=== PATIENT | female | born 2000 | race Two or more races ===

== ENCOUNTER 2022-03-12 07:20 | Emergency (ER) | payer MEDICAID ==
[2022-03-12] MEDS ORDERED: ONDANSETRON 4 MG/2 ML VIAL IVP STA (07:53)
[2022-03-12] MEDS ORDERED: KETOROLAC 30 MG/ML VIAL IVP STA (07:53)
[2022-03-12] MEDS ORDERED: SODIUM CHLORIDE 0.9% 1,000 ML IV STA (07:53)
--- NOTE | 2022-03-12 08:05 | ED Physician Documentation ---
History of Present Illness - Stated complaint Stated Complaint: FEVER,NAUSEA,VOMITING - Chief complaint Chief Complaint: Fever - History obtained from History obtained from: Patient - Additonal information Additional information: Patient is a 21-year-old female with no significant past medical history presenting for evaluation of 4 days of fever, body aches, chills, sore throat, cough with clear phlegm. Patient has been using Tylenol and Motrin without significant improvement in her fever. She took 2 pills of each approximately 1 hour prior to arrival.She had 1 episode of emesis this morning (Nonbloody, nonbilious) And reports continued nausea. She denies abdominal pain, vaginal bleeding, dysuria.She reports sick contacts with family members.She took a COVID test last night which was negative. Review of Systems Constitutional: reports: Fever, Chills, Myalgias Throat: reports: Sore throat Cardiac: denies: Chest pain / pressure Respiratory: reports: Cough. denies: Dyspnea GI: reports: Nausea, Vomiting. denies: Abdominal Pain : denies: Dysuria Skin: denies: Rash Musculoskeletal: denies: Back pain Neurologic: denies: Headache PD PAST MEDICAL HISTORY - Past Medical History Past Medical History: No Cardiovascular: None Respiratory: None Neuro: None Endocrine/Autoimmune: None GI: None HOTEL AND DINING ROOM CASHIER: None : None HEENT: None Psych: None Musculoskeletal: None Derm: None - Past Surgical History Past Surgical History: No - Present Medications Home Medications: Ambulatory Orders Medication Instructions Recorded Confirmed Ondansetron Odt [Zofran] 4 mg TL Q6H PRN #10 tablet 03/12/22 - Allergies Allergies/Adverse Reactions: Allergies Allergy/AdvReac Type Severity Reaction Status Date / Time No Known Drug Allergies Allergy Verified 03/12/22 07:27 - Social History Does the pt smoke?: No Smoking Status: Never smoker Does the pt drink ETOH?: No Does the pt have substance abuse?: No - Immunizations Immunizations are current?: Yes PD ED PE NORMAL - General General: Alert and oriented X 3, No acute distress, Well developed/nourished - HEENT HEENT: Atraumatic, Moist mucous membranes, Pharynx benign (No tonsillar exudate, swelling, signs of peritonsillar abscess. Normal voice) - Neck Neck: Supple, no meningeal sign - Cardiac Cardiac: No murmur, Other (Tachycardic, regular rhythm) - Respiratory Respiratory: No respiratory distress, Clear bilaterally - Abdomen Abdomen: Soft, Non tender, Non distended - Derm Derm: Warm and dry - Extremities Extremities: No edema - Neuro Neuro: Normal speech Results - Vitals Vitals: Vital Signs - 24 hr 03/12/22 03/12/22 03/12/22 07:28 07:42 09:35 Temperature 38.9 C H 37.2 C Heart Rate 137 H 121 H 106 H Respiratory 20 18 19 Rate Blood Pressure 130/84 H 136/69 H 117/85 H O2 Saturation 99 99 98 Oxygen O2 Source Room air - Labs Labs: Laboratory Tests 03/12/22 03/12/22 03/12/22 08:00 08:01 08:01 WBC 8.8 RBC 4.54 Hgb 12.6 Hct 38.4 MCV 84.6 MCH 27.8 MCHC 32.8 RDW 12.9 Plt Count 183 MPV 9.8 Neut # (Auto) 7.5 H Lymph # (Auto) 0.6 L [place] # (Auto) 0.7 Eos # (Auto) 0.0 Baso # (Auto) 0.0 Absolute Nucleated RBC 0.00 Nucleated RBC % 0.0 Sodium 135 Potassium 3.4 L Chloride 102 Carbon Dioxide 23 Anion Gap 10.0 BUN 7 Creatinine 0.8 Estimated GFR (MDRD) 92 Glucose 117 H Calcium 8.8 Total Bilirubin 0.7 AST 28 ALT 36 Alkaline Phosphatase 64 Total Protein 8.0 Albumin 4.4 Globulin 3.6 Albumin/Globulin Ratio 1.2 Lipase 28 Urine Color Urine Clarity Urine pH Ur Specific [place] Urine Protein Urine Glucose (UA) Urine Ketones Urine Occult Blood Urine Nitrite Urine Bilirubin Urine Urobilinogen Ur Leukocyte Esterase Urine RBC Urine WBC Ur Squamous Epith Cells Urine Bacteria Ur Microscopic Review Urine Culture Comments Urine HCG, Qual Nasal Adenovirus (PCR) NOT DETECTED Nasal B. parapertussis DNA (PCR) NOT DETECTED Nasal Coronavir 229E PCR NOT DETECTED Nasal Coronavir HKU1 PCR NOT DETECTED Nasal Coronavir NL63 PCR NOT DETECTED Nasal Coronavir OC43 PCR NOT DETECTED Nasal Enterovir/Rhinovir PCR NOT DETECTED Nasal Influenza A H3 PCR DETECTED A Nasal Influenza B PCR NOT DETECTED Nasal Parainfluen 1 PCR NOT DETECTED Nasal Parainfluen 2 PCR NOT DETECTED Nasal Parainfluen 3 PCR NOT DETECTED Nasal Parainfluen 4 PCR NOT DETECTED Nasal RSV (PCR) NOT DETECTED Nasal B.pertussis DNA PCR NOT DETECTED Nasal C.pneumoniae (PCR) NOT DETECTED Jorge Alberto Human Metapneumo PCR NOT DETECTED Nasal M.pneumoniae (PCR) NOT DETECTED Nasal SARS-CoV-2 (PCR) NOT DETECTED Group A Strep Rapid 03/12/22 03/12/22 08:10 09:00 WBC RBC Hgb Hct MCV MCH MCHC RDW Plt Count MPV Neut # (Auto) Lymph # (Auto) [place] # (Auto) Eos # (Auto) Baso # (Auto) Absolute Nucleated RBC Nucleated RBC % Sodium Potassium Chloride Carbon Dioxide Anion Gap BUN Creatinine Estimated GFR (MDRD) Glucose Calcium Total Bilirubin AST ALT Alkaline Phosphatase Total Protein Albumin Globulin Albumin/Globulin Ratio Lipase Urine Color YELLOW Urine Clarity SL. CLOUDY Urine pH 6.0 Ur Specific [place] <=1.005 Urine Protein NEGATIVE Urine Glucose (UA) NEGATIVE Urine Ketones 15 H Urine Occult Blood LARGE H Urine Nitrite NEGATIVE Urine Bilirubin NEGATIVE Urine Urobilinogen 0.2 (NORMAL) Ur Leukocyte Esterase TRACE H Urine RBC 6-10 H Urine WBC 6-10 H Ur Squamous Epith Cells MOD Squamous H Urine Bacteria Few Ur Microscopic Review INDICATED Urine Culture Comments NOT INDICATED Urine HCG, Qual NEGATIVE Nasal Adenovirus (PCR) Nasal B. parapertussis DNA (PCR) Nasal Coronavir 229E PCR Nasal Coronavir HKU1 PCR Nasal Coronavir NL63 PCR Nasal Coronavir OC43 PCR Nasal Enterovir/Rhinovir PCR Nasal Influenza A H3 PCR Nasal Influenza B PCR Nasal Parainfluen 1 PCR Nasal Parainfluen 2 PCR Nasal Parainfluen 3 PCR Nasal Parainfluen 4 PCR Nasal RSV (PCR) Nasal B.pertussis DNA PCR Nasal C.pneumoniae (PCR) Jorge Alberto Human Metapneumo PCR Nasal M.pneumoniae (PCR) Nasal SARS-CoV-2 (PCR) Group A Strep Rapid Negative PD MEDICAL DECISION MAKING - ED course Complexity details: reviewed results, re-evaluated patient ED course: Patient presenting with fever, myalgias, sore throat. Overall she is fairly well-appearing with normal lung sounds and no signs of meningitis.Her abdominal exam is benign. She was tachycardic Which did improve with fever control and IV fluids. Her labs are reassuring. Her chest x-ray is clear. Her respiratory panel is positive for influenza. She is out of the window for Tamiflu.Patient counseled on continuing with supportive care as well as concerning symptoms to return for. Departure - Departure Disposition: 01 Home, Self Care Clinical Impression: Influenza A Condition: Stable Instructions: ED Fever Control Prescriptions: Ondansetron Odt [Zofran] 4 mg TL Q6H PRN #10 tablet PRN Reason: Nausea / Vomiting Comments: You have tested positive for influenza A.I have sent a prescription for nausea medicine to [facility] in [place]. Please continue to alternate with acetaminophen and ibuprofen For your fevers. Please continue to stay hydrated with plenty of fluids and get plenty of rest. If you have any worsening symptoms such as trouble breathing then please consider return to the emergency department. Forms: Activity restrictions Discharge Date/Time: 03/12/22 09:46
[2022-03-12 08:06] LABS: BASOPHILS % (AUTO) 0.1 %; EOSINOPHILS % (AUTO) 0.1 %; HCT - HEMATOCRIT 38.4 % (37.0-47.0); HGB - HEMOGLOBIN 12.6 g/dL (12.0-16.0); LYMPHOCYTES # (AUTO) 0.6 10^3/uL (1.5-3.5); LYMPHOCYTES % (AUTO) 6.3 %; MEAN CORPUSCULAR HEMOGLOBIN 27.8 pg (27.0-31.0); MEAN CORPUSCULAR HGB CONC 32.8 g/dL (32.0-36.0); MEAN CORPUSCULAR VOLUME 84.6 fL (81.0-99.0); MEAN PLATELET VOLUME 9.8 fL (7.9-10.8); MONOCYTES # (AUTO) 0.7 10^3/uL (0.0-1.0); MONOCYTES % (AUTO) 7.7 %; NEUTROPHILS # (AUTO) 7.5 10^3/uL (1.5-6.6); NEUTROPHILS % (AUTO) 85.5 %; PLT - PLATELET COUNT 183 10^3/uL (130-450); RED BLOOD COUNT 4.54 10^6/uL (4.20-5.40); RED CELL DISTRIBUTION WIDTH 12.9 % (12.0-15.0); WHITE BLOOD COUNT 8.8 x10^3/uL (4.8-10.8)
[2022-03-12 08:23] LABS: ALBUMIN 4.4 g/dL (3.2-5.5); ALBUMIN/GLOBULIN RATIO 1.2 (1.0-2.2); BILIRUBIN,TOTAL 0.7 mg/dL (0.2-1.0); CALCIUM 8.8 mg/dL (8.5-10.3); CREATININE 0.8 mg/dL (0.4-1.0); POTASSIUM 3.4 mmol/L (3.5-5.0)
--- NOTE | 2022-03-12 08:24 | XRAY Report ---
PROCEDURE: Chest 1 View X-Ray INDICATIONS: cough/fever TECHNIQUE: One view of the chest was acquired. COMPARISON: None. FINDINGS: Surgical changes and devices: None. Lungs and pleura: No pleural effusions or pneumothorax. Lungs are clear. Mediastinum: Mediastinal contours appear normal. Heart size is normal. Bones and chest wall: No suspicious bony lesions. Overlying soft tissues appear unremarkable. IMPRESSION: No acute pulmonary process. Reviewed by: Hien Rowe MD on 03/12/2022 8:[address] [facility] Approved by: Hien Rowe MD on 03/12/2022 8:[address] [facility] Station ID: [id number]
[2022-03-12 08:27] LABS: RAPID STREP SCREEN Negative (Negative)
[2022-03-12 09:11] LABS: B. PARAPERTUSSIS- RESP PCR PAN NOT DETECTED; B. PERTUSSIS- RESP PCR PANEL NOT DETECTED; C. PNEUMONIAE- RESP PCR PANEL NOT DETECTED; CORONAVIRUS 229E-RESP PCR NOT DETECTED; CORONAVIRUS HKU1-RESP PCR NOT DETECTED; CORONAVIRUS NL63-RESP PCR NOT DETECTED; CORONAVIRUS OC43-RESP PCR NOT DETECTED; HUMAN METAPNEUMOVIRUS NOT DETECTED; INFLUENZA A H3- RESP PCR PANEL DETECTED; INFLUENZA B - RESP PCR PANEL NOT DETECTED; M. PNEUMONIAE- RESP PCR PANEL NOT DETECTED; PARAINFLUENZA VIRUS 1 NOT DETECTED; PARAINFLUENZA VIRUS 2 NOT DETECTED; PARAINFLUENZA VIRUS 3 NOT DETECTED; PARAINFLUENZA VIRUS 4 NOT DETECTED; RHINOVIRUS/ENTEROVIRUS NOT DETECTED; RSV- RESP PCR PANEL NOT DETECTED; SARS-CoV-2 -RESP PCR PANEL NOT DETECTED
[2022-03-12 09:13] LABS: BILIRUBIN,URINE NEGATIVE (NEGATIVE); GLUCOSE, URINE (UA) NEGATIVE (NEGATIVE); KETONES,URINE (UA) 15 mg/dL (NEGATIVE); LEUKOCYTE ESTERASE, URINE TRACE (NEGATIVE); NITRITE,URINE NEGATIVE (NEGATIVE); OCCULT BLOOD,URINE LARGE (NEGATIVE); PROTEIN,URINE NEGATIVE (NEGATIVE); UROBILINOGEN,URINE 0.2 (NORMAL) E.U./dL (NORMAL)
[2022-03-12 09:14] LABS: CLARITY,URINE SL. CLOUDY (CLEAR)
[2022-03-12 09:15] LABS: HCG UR QUAL NEGATIVE
[2022-03-12 09:20] LABS: BACTERIA,URINE Few /HPF (None Seen); SQUAMOUS EPITHELIAL CELL,UR MOD Squamous (<= Few)
[2022-03-12 09:40] VITALS: BP 117/85
== END 2022-03-12 09:46 | disposition home or self-care (01) ==
LOC: ED 07:20
DX: J10.1 Influenza due to other identified influenza virus with other respiratory manifestations (principal); Z20.822 Contact with and (suspected) exposure to COVID-19
CPT/HCPCS: 36415; 80053; 81001; 81003; 81025; 83690; 85025; 87070; 87086; 87430; 87633; 96361; 96374; 96375; 99282

== ENCOUNTER 2022-04-29 22:00 | Emergency (ER) | payer MEDICAID ==
[2022-04-29 22:20] VITALS: BP 134/73
[2022-04-29] MEDS ORDERED: AMOXICILLIN 250 MG CAPSULE PO STA (23:55)
--- NOTE | 2022-04-29 23:59 | ED Physician Documentation ---
PD HPI HEENT - Stated complaint Stated Complaint: EAR/FACIAL PX - Chief complaint Chief Complaint: Heent - History obtained from History obtained from: Patient, Family (mother in law) - Additional information Additional information: 21-year-old woman, previously healthy presents with left-sided ear fullness and pain for the past day as well as sore throat and nonproductive cough. There have been multiple sick people in her household recently with upper respiratory infections. Patient denies fever, chest pain, shortness of breath. Review of Systems Ten Systems: 10 systems reviewed and negative Constitutional: denies: Fever, Chills Ears: reports: Ear pain Nose: reports: Rhinorrhea / runny nose, Congestion Throat: reports: Sore throat Respiratory: reports: Cough. denies: Dyspnea PD PAST MEDICAL HISTORY - Past Medical History Past Medical History: No Cardiovascular: None Respiratory: None Neuro: None Endocrine/Autoimmune: None GI: None UX UI DESIGNER: None : None HEENT: None Psych: None Musculoskeletal: None Derm: None - Past Surgical History Past Surgical History: No - Present Medications Home Medications: Ambulatory Orders Medication Instructions Recorded Confirmed Amoxicillin 875 mg PO BID #20 tablet 04/29/22 Saccharomyces Boulardii [Florastor] 250 mg PO BIDWM #20 packet 04/29/22 - Allergies Allergies/Adverse Reactions: Allergies Allergy/AdvReac Type Severity Reaction Status Date / Time No Known Drug Allergies Allergy Verified 04/29/22 22:20 - Social History Does the pt smoke?: No Smoking Status: Never smoker Does the pt drink ETOH?: No Does the pt have substance abuse?: No - Immunizations Immunizations are current?: Yes - POLST Patient has POLST: No PD ED PE NORMAL - Vitals Vital signs reviewed: Yes - General General: Alert and oriented X 3, No acute distress, Well developed/nourished - HEENT HEENT: Atraumatic, PERRL, EOMI, Other (L TM erythematous and swollen. R TM clear. oropharyngeal erythema apparent. nasal congestion bilaterally) - Neck Neck: Supple, no meningeal sign Results - Vitals Vitals: Vital Signs - 24 hr 04/29/22 22:15 Temperature 37.1 C Heart Rate 103 H Respiratory 16 Rate Blood Pressure 134/73 H O2 Saturation 100 Oxygen O2 Source Room air PD Medical Decision Making - ED course ED course: 21-year-old woman presents with viral upper respiratory infection symptoms and left otitis media. Antibiotics provided. Return precautions given. Follow-up with your primary care doctor. Departure - Departure Disposition: 01 Home, Self Care Clinical Impression: Otitis media Condition: Good Instructions: ED Otitis Media Acute Adult Prescriptions: Amoxicillin 875 mg PO BID #20 tablet Saccharomyces Boulardii [Florastor] 250 mg PO BIDWM #20 packet Comments: You are seen in the emergency department for ear infection. Please take your antibiotics as prescribed and take ibuprofen 600 mg every 6 hours as needed for pain. Use Afrin or oxymetazoline or phenylephrine nasal spray to help clear nasal congestion twice daily for 3 days. This is an zwem-gzz-oylaric medication that you can get at your local pharmacy. Prescription for antibiotics was sent electronically to [facility] in [place]. Follow-up with your primary care provider and return to the emergency department if you have any new or worsening symptoms or other concerns.
[2022-04-30] MEDS ORDERED: KETOROLAC 10 MG TABLET PO STA
== END 2022-04-30 00:11 | disposition home or self-care (01) ==
LOC: ED 22:00
DX: H66.92 Otitis media, unspecified, left ear (principal)
CPT/HCPCS: 99282; A9270

== ENCOUNTER 2022-06-19 11:30 | Outpatient (CLI) | payer MEDICAID ==
[2022-06-19 16:34] LABS: BILIRUBIN,URINE NEGATIVE (NEGATIVE); GLUCOSE, URINE (UA) NEGATIVE (NEGATIVE); KETONES,URINE (UA) NEGATIVE (NEGATIVE); LEUKOCYTE ESTERASE, URINE NEGATIVE (NEGATIVE); NITRITE,URINE NEGATIVE (NEGATIVE); OCCULT BLOOD,URINE MODERATE (NEGATIVE); PROTEIN,URINE NEGATIVE (NEGATIVE); UROBILINOGEN,URINE 0.2 (NORMAL) E.U./dL (NORMAL)
[2022-06-19 16:36] LABS: CLARITY,URINE CLOUDY (CLEAR)
[2022-06-19 16:55] LABS: BACTERIA,URINE Few /HPF (None Seen); SQUAMOUS EPITHELIAL CELL,UR MANY Squamous (<= Few); WBC,URINE 0-3 /HPF (0-5)
[2022-06-19 16:56] LABS: AMORPHOUS SEDIMENT,UR Marked /LPF
== END 2022-06-19 23:59 | disposition home or self-care (01) ==
LOC: LAB.WC 11:30
PROVIDERS: ATTEND Nurse Practitioner
DX: R10.2 Pelvic and perineal pain (principal)
CPT/HCPCS: 81001; 87086

== ENCOUNTER 2022-06-26 22:16 | Outpatient (CLI) | payer MEDICAID ==
--- NOTE | 2022-06-27 10:07 | Ultrasound Report ---
PROCEDURE: Pelvic Complete INDICATIONS: PELVIC PAIN, ABN UTERINE BLEEDING TECHNIQUE: Real-time transabdominal scanning was performed of the pelvic organs, with image documentation. COMPARISON: None FINDINGS: Uterus: Uterus is normal in size at 5.7 x 1.9 x 3.9 cm. Endometrium measures 4.5 mm in combined thi ckness. Ovaries: The right ovary measures 2.5 x 2 x 2.8 cm, volume of 7 mL. The left ovary measures 2.4 x 2 x 2.5 cm, volume of 6.5 mL. Less than 12 follicles. Other: No free pelvic fluid. IMPRESSION: Endometrium measures 4.5 mm, within normal limits for age. Reviewed by: Reza Smith on 06/27/2022 10:06 AM [facility] Approved by: Reza Smith on 06/27/2022 10:06 AM [facility] Station ID: [id number]
== END 2022-06-26 22:17 | disposition home or self-care (01) ==
LOC: DI 22:16
PROVIDERS: ATTEND Nurse Practitioner
DX: R10.2 Pelvic and perineal pain (principal); N93.9 Abnormal uterine and vaginal bleeding, unspecified

== ENCOUNTER 2022-08-24 15:47 | Emergency (ER) | payer MEDICAID ==
[2022-08-24 16:07] LABS: BILIRUBIN,URINE NEGATIVE (NEGATIVE); GLUCOSE, URINE (UA) NEGATIVE (NEGATIVE); KETONES,URINE (UA) 40 mg/dL (NEGATIVE); LEUKOCYTE ESTERASE, URINE SMALL (NEGATIVE); NITRITE,URINE NEGATIVE (NEGATIVE); OCCULT BLOOD,URINE LARGE (NEGATIVE); PROTEIN,URINE 30 mg/dL (NEGATIVE); UROBILINOGEN,URINE 0.2 (NORMAL) E.U./dL (NORMAL)
[2022-08-24 16:08] LABS: CLARITY,URINE CLOUDY (CLEAR)
[2022-08-24 16:09] LABS: HCG UR QUAL NEGATIVE
[2022-08-24] MEDS ORDERED: PHENAZOPYRIDINE 100 MG TABLET PO STA (16:10)
[2022-08-24] MEDS ORDERED: NITROFURANTOIN MACRO 100 MG CAPSULE PO STA (16:10)
--- NOTE | 2022-08-24 16:10 | ED Physician Documentation ---
PD HPI FEMALE - Stated complaint Stated Complaint: FEMALE - Chief complaint Chief Complaint: UTI - History obtained from History obtained from: Patient - Additional information Additional information: Since yesterday she has had urinary frequency and dysuria. No associated flank pain or fever. Feels like prior UTIs, the most recent of which was about 2 years ago. 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 HEENT: None Psych: None Musculoskeletal: None Derm: None - Past Surgical History Past Surgical History: No - Present Medications Home Medications: Ambulatory Orders Medication Instructions Recorded Confirmed Amoxicillin 875 mg PO BID #20 tablet 04/29/22 Saccharomyces Boulardii [Florastor] 250 mg PO BIDWM #20 packet 04/29/22 Nitrofurantoin [Macrobid] 1 cap PO BID #10 cap 08/24/22 Phenazopyridine HCl [Pyridium] 200 mg PO TID PRN #6 tablet 08/24/22 - Allergies Allergies/Adverse Reactions: Allergies Allergy/AdvReac Type Severity Reaction Status Date / Time No Known Drug Allergies Allergy Verified 08/24/22 15:55 - Social History Does the pt smoke?: No Smoking Status: Never smoker Does the pt drink ETOH?: No Does the pt have substance abuse?: No - Immunizations Immunizations are current?: Yes - POLST Patient has POLST: No PD ED PE NORMAL - Vitals Vital signs reviewed: Yes - General General: Alert and oriented X 3, No acute distress - Abdomen Abdomen: Soft, Non tender - Back Back: No CVA TTP - Neuro Neuro: Alert and oriented X 3, Normal speech Results - Vitals Vitals: Vital Signs - 24 hr 08/24/22 15:50 Temperature 36.7 C Heart Rate 112 H Respiratory 16 Rate Blood Pressure 143/81 H O2 Saturation 100 Oxygen O2 Source Room air - Labs Labs: Laboratory Tests 08/24/22 15:55 Urine Color YELLOW Urine Clarity CLOUDY Urine pH 6.0 Ur Specific [place] 1.020 Urine Protein 30 H Urine Glucose (UA) NEGATIVE Urine Ketones 40 H Urine Occult Blood LARGE H Urine Nitrite NEGATIVE Urine Bilirubin NEGATIVE Urine Urobilinogen 0.2 (NORMAL) Ur Leukocyte Esterase SMALL H Ur Microscopic Review INDICATED Urine Culture Comments Not Reportable Urine HCG, Qual NEGATIVE Departure - Departure Disposition: 01 Home, Self Care Clinical Impression: Cystitis Condition: Good Record reviewed to determine appropriate education?: Yes Instructions: ED UTI Cystitis Female Prescriptions: Nitrofurantoin [Macrobid] 1 cap PO BID #10 cap Phenazopyridine HCl [Pyridium] 200 mg PO TID PRN #6 tablet PRN Reason: dysuria Comments: We will culture your urine, the results should be done in 48-72 hours. If an antibiotic change is necessary we will call you. Return if worse in the meantime, especially if you develop increasing flank pain, fevers, or cannot k eep down the medication.
[2022-08-24 16:17] LABS: BACTERIA,URINE Moderate /HPF (None Seen); RBC,URINE TNTC /HPF (0-5); SQUAMOUS EPITHELIAL CELL,UR FEW Squamous (<= Few); WBC,URINE >25 /HPF (0-5)
[2022-08-24 16:36] VITALS: BP 128/80
== END 2022-08-24 16:34 | disposition home or self-care (01) ==
LOC: ED 15:47
DX: N30.90 Cystitis, unspecified without hematuria (principal)
CPT/HCPCS: 81001; 81025; 87086; 99283; A9270; 81003

== ENCOUNTER 2022-09-14 14:56 | Emergency (ER) | payer MEDICAID ==
[2022-09-14] MEDS ORDERED: KETOROLAC 15 MG/ML VIAL IVP STA (15:12)
[2022-09-14] MEDS ORDERED: PROMETHAZINE INJ 25 MG in SODIUM CHLORIDE 0.9% 50 ML IV STA (15:12)
[2022-09-14] MEDS ORDERED: SODIUM CHLORIDE 0.9% 1,000 ML IV STA (15:12)
--- NOTE | 2022-09-14 15:13 | ED Physician Documentation ---
PD HPI ABD PAIN - Stated complaint Stated Complaint: VOMITING/SOA - Chief complaint Chief Complaint: Abd Pain - History obtained from History obtained from: Patient (Otherwise healthy 22-year-old woman became acutely ill this morning around 4 AM with vomiting, epigastric and esophageal pain. Mild diarrhea. Multiple family members sick with a GI illness. 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 HEENT: None Psych: None Musculoskeletal: None Derm: None - Past Surgical History Past Surgical History: No - Present Medications Home Medications: Ambulatory Orders Medication Instructions Recorded Confirmed Amoxicillin 875 mg PO BID #20 tablet 04/29/22 Saccharomyces Boulardii [Florastor] 250 mg PO BIDWM #20 packet 04/29/22 Nitrofurantoin [Macrobid] 1 cap PO BID #10 cap 08/24/22 Phenazopyridine HCl [Pyridium] 200 mg PO TID PRN #6 tablet 08/24/22 - Allergies Allergies/Adverse Reactions: Allergies Allergy/AdvReac Type Severity Reaction Status Date / Time No Known Drug Allergies Allergy Verified 09/14/22 15:05 - Social History Does the pt smoke?: No Smoking Status: Never smoker Does the pt drink ETOH?: No Does the pt have substance abuse?: No - Immunizations Immunizations are current?: Yes - POLST Patient has POLST: No PD ED PE NORMAL - Vitals Vital signs reviewed: Yes - General General: Alert and oriented X 3, Other (She is retching and uncomfortable) - Cardiac Cardiac: RRR, No murmur - Respiratory Respiratory: No respiratory distress, Clear bilaterally - Abdomen Abdomen: Soft, Non tender - Neuro Neuro: Alert and oriented X 3, Normal speech Results - Vitals Vitals: Vital Signs - 24 hr 09/14/22 15:03 Temperature 37.5 C Heart Rate 107 H Respiratory 16 Rate Blood Pressure 141/81 H O2 Saturation 100 Oxygen O2 Source Room air - Labs Labs: Laboratory Tests 09/14/22 09/14/22 09/14/22 15:21 15:21 16:46 WBC 10.3 RBC 5.30 Hgb 14.4 Hct 44.5 MCV 84.0 MCH 27.2 MCHC 32.4 RDW 12.7 Plt Count 245 MPV 10.6 Neut # (Auto) 9.0 H Lymph # (Auto) 0.8 L [place] # (Auto) 0.4 Eos # (Auto) 0.0 Baso # (Auto) 0.0 Absolute Nucleated RBC 0.00 Nucleated RBC % 0.0 Sodium 138 Potassium 3.7 Chloride 103 Carbon Dioxide 24 Anion Gap 11.0 BUN 9 Creatinine 0.7 Estimated GFR (MDRD) 107 Glucose 102 H Calcium 9.4 Total Bilirubin 0.8 AST 23 ALT 28 Alkaline Phosphatase 81 Total Protein 8.8 H Albumin 4.6 Globulin 4.2 Albumin/Globulin Ratio 1.1 Lipase 33 Urine Color YELLOW Urine Clarity CLOUDY Urine pH 7.0 Ur Specific [place] 1.015 Urine Protein NEGATIVE Urine Glucose (UA) NEGATIVE Urine Ketones TRACE Urine Occult Blood NEGATIVE Urine Nitrite NEGATIVE Urine Bilirubin NEGATIVE Urine Urobilinogen 0.2 (NORMAL) Ur Leukocyte Esterase NEGATIVE Urine RBC 0-5 Urine WBC 0-3 Ur Squamous Epith Cells MANY Squamous H Amorphous Sediment Few Urine Bacteria Moderate H Ur Microscopic Review INDICATED Urine Culture Comments NOT INDICATED Urine HCG, Qual NEGATIVE PD Medical Decision Making - ED course ED course: 22-year-old woman presents with a syndrome consistent with gastroenteritis. Benign exam. She was administered IV fluid and IV Phenergan with significant relief in her symptoms and passed p.o. challenge. On reexamination prior to discharge she was nontender. CBC, CMP, urinalysis and urine test were unremarkable. Departure - Departure Disposition: 01 Home, Self Care Clinical Impression: Gastroenteritis Condition: Stable Record reviewed to determine appropriate education?: Yes Instructions: ED Gastroenteritis Viral Comments: Return if not better in 24 hours, anytime for new or worsening symptoms.
[2022-09-14 15:27] LABS: BASOPHILS % (AUTO) 0.2 %; EOSINOPHILS % (AUTO) 0.1 %; HCT - HEMATOCRIT 44.5 % (37.0-47.0); HGB - HEMOGLOBIN 14.4 g/dL (12.0-16.0); LYMPHOCYTES # (AUTO) 0.8 10^3/uL (1.5-3.5); LYMPHOCYTES % (AUTO) 8.2 %; MEAN CORPUSCULAR HEMOGLOBIN 27.2 pg (27.0-31.0); MEAN CORPUSCULAR HGB CONC 32.4 g/dL (32.0-36.0); MEAN PLATELET VOLUME 10.6 fL (7.9-10.8); MONOCYTES # (AUTO) 0.4 10^3/uL (0.0-1.0); MONOCYTES % (AUTO) 3.6 %; NEUTROPHILS % (AUTO) 87.7 %; PLT - PLATELET COUNT 245 10^3/uL (130-450); RED CELL DISTRIBUTION WIDTH 12.7 % (12.0-15.0); WHITE BLOOD COUNT 10.3 x10^3/uL (4.8-10.8)
[2022-09-14] MEDS ORDERED: PROMETHAZINE 25 MG/1 ML VIAL ONE (15:28)
[2022-09-14 15:38] LABS: ALBUMIN 4.6 g/dL (3.2-5.5); ALBUMIN/GLOBULIN RATIO 1.1 (1.0-2.2); BILIRUBIN,TOTAL 0.8 mg/dL (0.2-1.0); CALCIUM 9.4 mg/dL (8.5-10.3); CREATININE 0.7 mg/dL (0.4-1.0); POTASSIUM 3.7 mmol/L (3.5-5.0); TOTAL PROTEIN 8.8 g/dL (6.7-8.2)
[2022-09-14 16:53] LABS: BILIRUBIN,URINE NEGATIVE (NEGATIVE); GLUCOSE, URINE (UA) NEGATIVE (NEGATIVE); KETONES,URINE (UA) TRACE mg/dL (NEGATIVE); LEUKOCYTE ESTERASE, URINE NEGATIVE (NEGATIVE); NITRITE,URINE NEGATIVE (NEGATIVE); OCCULT BLOOD,URINE NEGATIVE (NEGATIVE); PROTEIN,URINE NEGATIVE (NEGATIVE); UROBILINOGEN,URINE 0.2 (NORMAL) E.U./dL (NORMAL)
[2022-09-14 16:54] LABS: CLARITY,URINE CLOUDY (CLEAR); HCG UR QUAL NEGATIVE
[2022-09-14 17:05] LABS: AMORPHOUS SEDIMENT,UR Few /LPF; BACTERIA,URINE Moderate /HPF (None Seen); RBC,URINE 0-5 /HPF (0-5); SQUAMOUS EPITHELIAL CELL,UR MANY Squamous (<= Few); WBC,URINE 0-3 /HPF (0-5)
[2022-09-14] MEDS ORDERED: ONDANSETRON ODT 4 MG Prepack 2 TL PRN (17:08)
[2022-09-14] MEDS ORDERED: ONDANSETRON ODT 4 MG Prepack 2 TL STA (17:08)
[2022-09-14 17:24] VITALS: BP 116/65
== END 2022-09-14 17:30 | disposition home or self-care (01) ==
LOC: ED 14:56
DX: K52.9 Noninfective gastroenteritis and colitis, unspecified (principal)
CPT/HCPCS: 36415; 80053; 81001; 81025; 83690; 85025; 96365; 96375; 99284; J7040; 81003; 87086